=== PATIENT | female | born 1980 ===

== ENCOUNTER 2016-08-24 10:01 | Emergency (ER) | payer OTHER ==
[2016-08-24 10:12] VITALS: BMI 27.1
--- NOTE | 2016-08-24 10:25 | ED PDOC ---
HPI: Female Pain Time Seen by Provider: 08/24/16 10:07 Chief Complaint (Nursing): Female Genitourinary History Per: Patient (Vaginal bleeding assoc with lower abd cramping since Sat. Pt approx 5 weeks .) Onset/Duration Of Symptoms: Days (3) Current Symptoms Are (Timing): Still Present Severity: Mild Pain Scale Rating Of: 2 Quality Of Discomfort: Cramping Abnormal Vaginal Bleeding: Yes Past Medical History Vital Signs: Last Vital Signs Temp 97.8 F 08/24/16 10:12 Pulse 73 08/24/16 10:12 Resp 19 08/24/16 10:12 BP 112/65 08/24/16 10:12 Pulse Ox 100 08/24/16 10:12 - Medical History PMH: No Chronic Diseases - Family History Family History: States: Unknown Family Hx - Home Medications Home Medications: Ambulatory Orders Medication Instructions Recorded No Known Home Med 08/24/16 - Allergies Allergies/Adverse Reactions: Allergies Allergy/AdvReac Type Severity Reaction Status Date / Time No Known Allergies Allergy Verified 08/24/16 10:22 Review of Systems Constitutional: Negative for: Weakness Gastrointestinal: Positive for: Abdominal Pain Genitourinary Female: Positive for: Vaginal Bleeding Musculoskeletal: Negative for: Back Pain Physical Exam - Physical Exam Appears: Positive for: Non-toxic, No Acute Distress Skin: Positive for: Normal Color, Warm, DRY Gastrointestinal/Abdominal: Positive for: Normal Exam, Bowel Sounds, Soft. Negative for: Tenderness Pelvic Exam: Positive for: External Exam Normal, Blood (Mod blood in vaualt), Other (Cervix closed). Negative for: Mass, Tender Adnexa - Laboratory Results Result Diagrams: 08/24/16 10:46 08/24/16 10:46 - ECG O2 Sat by Pulse Oximetry: 100 Medical Decision Making Medical Decision Making: US and beta HCG findings discussed with Dr. Ivory. Pt does not have acute abd. Dr Ivory suggests repeat Beta HCG Tuesday, he will be in hospital that day. Pt instructed to return to ED immediately if increased bleeding or increased abd pain. Disposition - Clinical Impression Clinical Impression: Threatened - Patient ED Disposition Is Patient to be Admitted: No Counseled Patient/Family Regarding: Studies Performed, Diagnosis, Need For Followup - Disposition Disposition: Routine/Home Disposition Time: 14:35 Condition: FAIR Additional Instructions: Regressa Viernes para repetir la prueba de kory Beta HCG. Regressa immediatemente si kory mas o si tiene mas dolor.
[2016-08-24 10:52] LABS: BASO # 0.1 K/uL (0.0-0.2); BASO % 1.2 % (0.0-2.0); EOS # 0.5 K/uL (0.0-0.7); EOS % 6.6 % (0.0-4.0); HEMATOCRIT 42.2 % (34.0-47.0); LYMPH # 1.8 K/uL (1.0-4.3); LYMPH % 24.3 % (20.0-40.0); MEAN CELL VOLUME 82.7 fl (81.0-99.0); MEAN CORPUSCULAR HEMOGLOBIN 27.8 pg (27.0-31.0); MEAN CORPUSCULAR HGB CONC 33.6 g/dL (33.0-37.0); MEAN PLATELET VOLUME 8.8 fl (7.2-11.7); MONO # 0.4 K/uL (0.0-0.8); MONO % 5.7 % (0.0-10.0); NEUT # 4.5 K/uL (1.8-7.0); NEUT % 62.2 % (50.0-75.0); NRBC % 0.1 % (0.0-0.0); RED CELL DISTRIBUTION WIDTH 14.3 % (11.5-14.5); WHITE BLOOD COUNT 7.3 K/uL (4.8-10.8)
[2016-08-24 11:02] LABS: ALB/GLOB RATIO 1.1 (1.0-2.1); ALKALINE PHOSPHATASE 70 U/L (38-126); ALT/SGPT 22 U/L (9-52); AST/SGOT 26 U/L (14-36); BILIRUBIN,TOTAL 0.6 mg/dl (0.2-1.3); BLOOD UREA NITROGEN 9 mg/dl (7-17); CALCIUM 9.3 mg/dL (8.4-10.2); CARBON DIOXIDE 24 mmol/L (22-30); CHLORIDE 106 mmol/L (98-107); GFR AFRICAN-AMERICAN > 60; GLUCOSE,RANDOM 110 mg/dL (65-105); POTASSIUM 3.9 MMOL/L (3.6-5.0); SODIUM 145 mmol/l (132-148); TOTAL PROTEIN 7.5 G/DL (6.3-8.2)
--- NOTE | 2016-08-24 14:09 | US ---
HISTORY: r/o ectopic COMPARISON: None available. TECHNIQUE: Transabdominal and endovaginal ultrasound examination of the pelvis was performed. FINDINGS: UTERUS: Measures 8.3 x 6.1 x 4.9 cm. Normal in size and appearance. There is posterior wall submucosal fibroid adjacent to the endometrium measures 1.2 x 1.3 x 1.2 centimeter. ENDOMETRIUM: Measures 6.3 mm in diameter. No evidence of intrauterine . CERVIX: No cervical abnormality identified. RIGHT OVARY: Measures 3.7 x 3.9 x 1.8 cm. No solid mass. Normal flow. Simple cyst seen at the right ovary measures 1.9 x 1.7 x 1.6 centimeter. There is also an echo week structure with echogenic ring measures 1 x 1.1 x 1 centimeter may also represent ovarian cyst. LEFT OVARY: Measures 2.9 x 2.3 x 1.7 cm. No solid mass. Normal flow. There is 1.3 x 1.4 x 0.8 centimeters cyst at the left ovary. FREE FLUID: No significant free fluid noted. OTHER FINDINGS: None. IMPRESSION: No evidence of intrauterine . Complex cystic lesions seen at the right adnexa. Follow-up reassessment by ultrasound and correlation with beta HCG level is recommended.
[2016-08-24 14:18] VITALS: BP 115/70; PULSE 82; RESP 16; TEMP 97.9
[2016-08-24 14:36] VITALS: O2SAT 100
--- NOTE | 2016-08-24 14:43 | US ---
Please refer to the transabdominal ultrasound of the pelvis report.
== END 2016-08-24 14:46 | disposition home or self-care (01) ==
LOC: H.ER 10:01
DX: O20.0 Threatened abortion (principal); Z3A.01 Less than 8 weeks gestation of pregnancy

== ENCOUNTER 2016-08-27 08:55 | Emergency (ER) | payer OTHER ==
[2016-08-27 08:59] VITALS: BP 112/73; PULSE 68; RESP 18; TEMP 97.4
[2016-08-27 09:00] VITALS: BMI 26.9
[2016-08-27 09:08] VITALS: O2SAT 98
--- NOTE | 2016-08-27 10:14 | ED PDOC ---
HPI: Abdomen Time Seen by Provider: 08/27/16 09:09 Chief Complaint (Nursing): Abdominal Pain Chief Complaint (Provider): Abdominal Pain History Per: Patient History/Exam Limitations: no limitations Onset/Duration Of Symptoms: Hrs Current Symptoms Are (Timing): Still Present Additional Complaint(s): 36 y/o female who presents to the emergency department for a repeat of Beta count after having a low count upon visit to ER on 08/24/2016. Patient was experiencing abdomen pain status post but had resolved since. Denies vaginal bleeding. Past Medical History Reviewed: Historical Data, Nursing Documentation, Vital Signs Vital Signs: Last Vital Signs Temp 97.4 F L 08/27/16 08:58 Pulse 68 08/27/16 08:58 Resp 18 08/27/16 08:58 BP 112/73 08/27/16 08:58 Pulse Ox 98 08/27/16 10:45 - Medical History PMH: Asthma - Family History Family History: States: Unknown Family Hx - Social History Current smoker - smoking cessation education provided: No Alcohol: None Drugs: Denies - Home Medications Home Medications: Ambulatory Orders Medication Instructions Recorded No Known Home Med 08/24/16 - Allergies Allergies/Adverse Reactions: Allergies Allergy/AdvReac Type Severity Reaction Status Date / Time No Known Allergies Allergy Verified 08/24/16 10:22 Review of Systems ROS Statement: Except As Marked, All Systems Reviewed And Found Negative Gastrointestinal: Positive for: Abdominal Pain (Had resolved since) Genitourinary Female: Negative for: Vaginal Bleeding Physical Exam - Reviewed Nursing Documentation Reviewed: Yes Vital Signs Reviewed: Yes - Physical Exam Appears: Positive for: Non-toxic, No Acute Distress Head Exam: Positive for: ATRAUMATIC, NORMOCEPHALIC Skin: Positive for: Normal Color, Warm, Dry Eye Exam: Positive for: Normal appearance. Negative for: Conjunctival injection Neck: Positive for: Normal, Supple Cardiovascular/Chest: Positive for: Regular Rate, Rhythm. Negative for: Murmur Respiratory: Positive for: Normal Breath Sounds. Negative for: Accessory Muscle Use, Respiratory Distress Gastrointestinal/Abdominal: Positive for: Normal Exam, Soft. Negative for: Tenderness Neurologic/Psych: Positive for: Alert, Oriented - ECG O2 Sat by Pulse Oximetry: 98 (RA) Pulse Ox Interpretation: Normal - Physician Consult Information Physician Contacted: Jason Ivory Outcome Of Conversation: Case discussed, findings c/w complete Ab, recommends follow-up with [facility] in 1-2 weeks for repeat beta until level reaches 0, give copy of labs and ultrasound. Medical Decision Making Medical Decision Making: Time: 9:09 Initial impression: Evaluation of previous Low Beta Count Findings and plan discussed in detail with patient (translated by Mehreen Marcus RN), pt expressed verbal understanding. Scribe Attestation: Documented by Yamile Bland, acting as a scribe for Majo Fitzpatrick. Provider Scribe Attestation: All medical record entries made by the Scribe were at my direction and personally dictated by me. I have reviewed the chart and agree that the record accurately reflects my personal performance of the history, physical exam, medical decision making, and the department course for this patient. I have also personally directed, reviewed, and agree with the discharge instructions and disposition. Disposition - Clinical Impression Clinical Impression: Complete - Disposition Referrals: [facility] [Outside] [facility] [Outside] Disposition: Routine/Home Disposition Time: 10:41 Condition: GOOD Additional Instructions: Seguimiento con la clnica de medicina familiar o gineclogo privado para repetir beta hcG hasta que llegue a cero. Seguimiento SIN FALTA dentro de [place] a 2 semanas. Instructions: Spontaneous Miscarriage (ED) Print Language: GIBRALT[place]
== END 2016-08-27 11:01 | disposition home or self-care (01) ==
LOC: H.ER 08:55
DX: O03.9 Complete or unspecified spontaneous abortion without complication (principal)